=== PATIENT | male | born 1990 | race Caucasian/White ===

== ENCOUNTER 2024-08-01 08:52 | Emergency (ER) | payer MEDICAID ==
[~2024-08-01] VITALS: Ht 167.6 cm; Wt 75.0 kg
[2024-08-01 08:54] VITALS: O2SAT 97
[2024-08-01] MEDS ORDERED: LORAZEPAM 2MG/ML INJ IV ONE (09:00)
[2024-08-01 09:26] LABS: BASOPHILS % 0.3 % (0.0-2.0); EOSINOPHILS % 1.1 % (0.0-5.0); HEMATOCRIT. 46.6 % (42.0-52.0); HEMOGLOBIN. 15.6 g/dL (14.0-18.0); LYMPHOCYTES % 22.2 % (20.0-50.0); MEAN CORPUSCULAR HEMOGLOBIN 27.6 pg (28.0-32.0); MEAN CORPUSCULAR HGB CONC 33.5 g/dL (31.0-37.0); MEAN CORPUSCULAR VOLUME 82.4 fL (80.0-94.0); MEAN PLATELET VOLUME 8.6 fl (7.4-10.4); MONOCYTES % 5.8 % (2.0-8.0); NEUTROPHILS % 70.6 % (40.0-76.0); PLATELET 216 x1000/uL (130-400); RED BLOOD CELL COUNT 5.66 mill/uL (4.7-6.1); RED CELL DISTRIBUTION WIDTH 13.7 % (11.6-14.6); WHITE BLOOD COUNT 4.7 x1000/uL (4.5-11.0)
[2024-08-01 09:37] LABS: CHLORIDE 110 mEq/L (98-107); POTASSIUM 4.2 mEq/L (3.5-5.1); SODIUM 141 mEq/L (136-145)
[2024-08-01 09:38] LABS: CALCIUM 9.3 mg/dL (8.7-10.4); CARBON DIOXIDE 26 mEq/L (21-32)
[2024-08-01] MEDS: LORAZEPAM 2MG/ML UD SYRINGE IV SCH (09:39)
[2024-08-01 09:43] LABS: CREATININE 0.7 mg/dL (0.6-1.3); GLUCOSE 142 mg/dL (70-105); UREA NITROGEN BLOOD 11 mg/dL (9-23)
[2024-08-01 09:44] LABS: ETHANOL BLOOD < 10 mg/dL (<10)
[2024-08-01] MEDS: SODIUM CHLORIDE 0.9% 1,000 ML IV ONE (09:44)
[2024-08-01 09:50] LABS: TROPONIN I HIGH SENSITIVITY < 4 ng/L (3.0-53)
[2024-08-01 10:50] VITALS: BP 121/76; PULSE 74; RESP 12; O2SAT 96
== END 2024-08-01 11:10 | disposition home or self-care (01) ==
LOC: ER 09:30
DX: R41.82 Altered mental status, unspecified (principal); G80.9 Cerebral palsy, unspecified; Z88.2 Allergy status to sulfonamides
CPT/HCPCS: 80048; 80320; 85025; 84484; 36415; 93005; 96361; 96374; 99284; J2060; J7030; Z7610 ×2; 96375; G0480